=== PATIENT | female | born 1990 | race Caucasian/White ===

== ENCOUNTER 2024-09-16 03:13 | Emergency (ER) | payer OTHER, SELFPAY ==
[2024-09-16 03:21] VITALS: BP 103/81; BMI 23.1
[2024-09-16 03:42] LABS: % Basophils 0.8 % (0-2); % Eosinophils 0.7 % (0-6); % Immature Granulocytes 0.2 % (0-0.5); % Lymphocytes 25.4 % (20.5-51.1); % Monocytes 6.9 % (1.7-9.3); Absolute Basophils 0.1 10^3/uL (0-0.2); Absolute Lymphocytes 1.6 10^3/uL (1.2-3.4); Absolute Monocytes 0.4 10^3/uL (0.1-0.6); Absolute Neutrophils 4.1 10^3/uL (1.4-6.5); Hematocrit 32.1 % (37.0-47.0); Hemoglobin 11.6 g/dL (12.0-16.0); Mean Corp Hgb Conc. 36.1 g/dL (33.0-37.0); Mean Corpuscular Hgb 30.9 pg (27.0-31.0); Mean Corpuscular Volume 85.4 fL (81.0-99.0); Mean Platelet Volume 9.5 fL (7.4-10.4); Nucleated Red Blood Cells % 0 %; Platelet Count 185 10^3/uL (130-400); Red Blood Cell Count 3.76 10^6/uL (4.20-5.40); Red Cell Dist. Width 12.3 % (11.5-14.5); White Blood Cell Count 6.1 10^3/uL (4.8-10.8)
[2024-09-16 03:51] LABS: HCG, Serum Qualitative Screen Negative
[2024-09-16 03:56] LABS: ALT (SGPT) 18 U/L (0-35); AST (SGOT) 20 U/L (14-36); Albumin 3.8 g/dl (3.5-5.0); Alkaline Phosphatase 54 U/L (38-126); Blood Urea Nitrogen 24 mg/dl (7-17); Calcium 8.7 mg/dl (8.4-10.2); Carbon Dioxide 21 mmol/L (22-30); Chloride 108 mmol/L (98-107); Estimated Creatinine Clearance 92 ml/min; Glucose 91 mg/dl (70-99); Potassium 3.8 mmol/L (3.5-5.1); Sodium 141 mmol/L (135-145); Total Bilirubin 0.4 mg/dl (0.2-1.3); Total Protein 6.1 g/dl (6.3-8.2); eGFR > 60.00
[2024-09-16 04:00] VITALS: BP 99/69
--- NOTE | 2024-09-16 04:15 | ED.GENMED ---
History of Present Illness
<TAMEKA Swain - Last Filed: 09/16/24 07:21>
General
Chief Complaint: Fainting/Passed Out
Source: patient
Exam Limitations: none
Time Seen by Provider: 09/16/24 04:02
Nursing documentation reviewed up to this point in time: agreed with
History of Present Illness
History of Present Illness:
Patient is a 33yo F w/ no significant PMH presents to the ED via EMS after passing out. Pt states she checked on her son, went back to bed, and suddenly got very nauseous. Went to [place], started to get very sweaty and dizzy. Passed out and hit cheek on
toilet. Admits to small amount of diarrhea after fainting. Admit to some continued nausea, chills, and 'doesn't feel like herself'. Denies BRENNAN, dizziness, chest pain, SOB, and fever. Denies recent illness. One similar episode years ago when she had
mastitis. Notes she did not have dinner tonight. Reports adequate hydration.
Past History
<TAMEKA Swain - Last Filed: 09/16/24 07:21>
Past History
ED Past Medical History: Negative Asthma, HTN, Hypercholesterolemia or NIDDM
ED Past Surgical History: None
Social History
Tobacco: Non-smoker
Alcohol: None
Personal: Single
Living: with family
Review of Systems
<TAMEKA Swain - Last Filed: 09/16/24 07:21>
Review of Systems
Constitutional: Reports chills; Denies fever or fatigue
EENT: Denies sore throat or runny nose
Respiratory: Denies cough or trouble breathing
Cardiac: Reports syncope; Denies chest pain or palpitations
ABD/GI: Reports abdominal pain, nausea and diarrhea; Denies vomiting or constipated
: Denies dysuria
Musculoskeletal: Denies joint pain or muscle pain
Skin: Denies itching or rash
Neurological: Denies dizzy, headache, weakness or numbness
Phy Exam
<Na Stanley [facility] - [facility] Filed: 09/16/24 07:21>
General Physical Exam
General Presentation: well appearing
General age: appears stated age
General Skin: warm and dry
General Habitus: normal
General Mental: alert
Eye Exam
Eye Exam: PERRL
Cardiovascular Exam
Cardiovascular Exam: regular rate/rhythm, no edema, no gallop and no murmur
Pulmonary Exam
Pulmonary Exam: lungs clear, no respiratory distress, no rales, no crackles, no rhonchi, no wheezing and no cough
Gastrointestinal Exam
Gastrointestinal Exam: normal bowel sounds, non tender, soft, no organomegaly and non distended
Neurological Exam
Neurological Exam: alert, oriented x3 and speech normal
Course
<Na Stanley [facility] - [facility] Filed: 09/16/24 07:21>
Orders/Labs/Results
Orders:
Orders
09/16/24 03:20
Electrocardiogram (*1) Urgent
Reason for Study: Syncope
EKG- Treatment ONCE
Test Result ONCE
09/16/24 03:35
Complete Blood Count/With Diff Urgent
Comprehensive Metabolic Panel Urgent
HCG, Serum Qualitative Screen Urgent
09/16/24 04:22
0.9% Sodium Chloride 1000 ml [Nss] 1,000 ml IV BOLUS
09/16/24 05:52
Orthostatic Vital Signs As Directed
Orthostatic VS Frequency: Now
Abnormal Lab Results
09/16/24
03:35
RBC 3.76 L 10^6/uL
(4.20-5.40)
Hgb 11.6 L g/dL
(12.0-16.0)
Hct 32.1 L %
(37.0-47.0)
Chloride 108 H mmol/L
(98-107)
Carbon Dioxide 21 L mmol/L
(22-30)
BUN 24 H mg/dl
(7-17)
Total Protein 6.1 L g/dl
(6.3-8.2)
09/16/24 03:35
09/16/24 03:35
Vital Signs
Initial and Last Documented VS:
Initial Vital Signs
Temp Pulse Resp BP Pulse Ox
97.7 F 68 16 103/81 99
09/16/24 03:21 09/16/24 03:21 09/16/24 03:21 09/16/24 03:21 09/16/24 03:21
Last Documented Vital Signs
Temp Pulse Resp BP Pulse Ox
97.7 F 90 14 91/60 99
09/16/24 03:21 09/16/24 06:16 09/16/24 06:16 09/16/24 06:00 09/16/24 03:21
<Michaela Mauricio, DO - Last Filed: 09/16/24 06:42>
Orders/Labs/Results
Orders:
Orders
09/16/24 03:20
Electrocardiogram (*1) Urgent
Reason for Study: Syncope
EKG- Treatment ONCE
Test Result ONCE
09/16/24 03:35
Complete Blood Count/With Diff Urgent
Comprehensive Metabolic Panel Urgent
HCG, Serum Qualitative Screen Urgent
09/16/24 04:22
0.9% Sodium Chloride 1000 ml [Nss] 1,000 ml IV BOLUS
09/16/24 05:52
Orthostatic Vital Signs As Directed
Orthostatic VS Frequency: Now
Abnormal Lab Results
09/16/24
03:35
RBC 3.76 L 10^6/uL
(4.20-5.40)
Hgb 11.6 L g/dL
(12.0-16.0)
Hct 32.1 L %
(37.0-47.0)
Chloride 108 H mmol/L
(98-107)
Carbon Dioxide 21 L mmol/L
(22-30)
BUN 24 H mg/dl
(7-17)
Total Protein 6.1 L g/dl
(6.3-8.2)
09/16/24 03:35
09/16/24 03:35
Vital Signs
Initial and Last Documented VS:
Initial Vital Signs
Temp Pulse Resp BP Pulse Ox
97.7 F 68 16 103/81 99
09/16/24 03:21 09/16/24 03:21 09/16/24 03:21 09/16/24 03:21 09/16/24 03:21
Last Documented Vital Signs
Temp Pulse Resp BP Pulse Ox
97.7 F 90 14 91/60 99
09/16/24 03:21 09/16/24 06:16 09/16/24 06:16 09/16/24 06:00 09/16/24 03:21
<TAMEKA Swain - Last Filed: 09/16/24 07:21>
MDM/Problems Addressed
Differential Diagnosis Includes:
vasovagal syncope, hypoglycemia, arrhythmia
<TAMEKA Swain - Last Filed: 09/16/24 07:21>
*Critical Care Note
Total Time (30-74mins, 75-104mins- exclusive of procedures): Not Applicable
<Michaela Mauricio DO - Last Filed: 09/16/24 06:42>
*Pulse Oximetry
Patient hypoxic: no
*EKG
Interpreted by ED Provider?: Yes
Interpretation: normal
Comparison EKG: no comparison EKG present
Rate: normal
Rhythm: sinus
[place]: normal axis
Interval: normal interval
QRS Pattern: normal QRS
Ischemia: no ischemia
*Art Critic Interpretation
Rate: normal
Interpretation: normal
Rhythm: sinus
ED Attending Note
<TAMEKA Swain - Last Filed: 09/16/24 07:21>
-
Portions of this chart may have been created with voice recognition software.� Occasional wrong word or��sound alike� substitutions may have occurred due to the inherent limitations of voice recognition software.
<Michaela Mauricio DO - Last Filed: 09/16/24 06:42>
ED Attending Note
Patient seen and examined by attending physician: Yes
I performed the substantive portion of visit, reviewed & personally made and approve the management plan that is documented in note by myself or RENETTA.: Yes
ED Attending Note:
This is a 33-year-old woman with no significant past medical history who states she felt nauseous while heading back to bed after checking on her children. She got up out of bed, went to the bathroom and proceeded to pass out striking her cheek on
the toilet or counter. She did not vomit but notes brief loss of consciousness and upon waking then passed a loose nonbloody stool. She continues with nausea but has had no vomiting.
Upon EMS arrival noted to be significantly hypotensive as well as bradycardic. IV fluid bolus of 800 cc initiated prehospital with marked improvement in blood pressure, improvement in heart rate to normal sinus rhythm in the 60s.
Patient reports 1 previous episode of syncope with episode of mastitis while nursing.
She denies risk of . She takes no medicines on a daily basis. Exercises on a regular basis.
She denies headache, denies neck or back pain. No chest pain no palpitations, no abdominal pain.
GENERAL: Alert , in no apparent distress
EYE: pupils equal and reactive. anicteric
NECK: Supple, nontender, no meningismus, no significant adenopathy.
ENT: posterior pharynx is clear, oral mucosa is moist. TM clear b/l, nares patent. Very minimal erythema right cheek without soft tissue swelling, no significant tenderness to palpation.
CARDIAC: Regular rate and rhythm. no murmur.
LUNGS: Clear breath sounds bilaterally, no acute respiratory distress, no wheezes/rales/rhonchi
ABDOMEN: Soft, nondistended, without focal tenderness, no r/g, no cvat. normoactive BS.
NEUROLOGICAL: Alert and oriented x3, no focal neuro deficits.
SKIN: Warm and dry, normal color, skin intact. No rash.
MUSCULOSKELETAL: No C/C/E. peripheral pulses are full and equal b/l. No palpable tenderness.
PSYCH: Normal and appropriate interaction.
Patient presents after syncopal episode at home suggestive of vasovagal syncope.
Currently asymptomatic. Mildly soft blood pressure. Will continue IV fluids, continue bus monitor, will check labs. She does admit to skipping dinner last night which is unusual for her which could be a contributing factor.
Other consideration is early onset gastroenteritis and will monitor for recurrent symptoms.
She denies pain. At this point no indication for imaging.
09/16/2024 0641 AM
Patient continues to feel well, no return of nausea nor diarrhea, no abdominal pain, no recurrent syncopal episodes.
She remains hemodynamically stable.
Labs are unremarkable save for mild prerenal azotemia.
Orthostatic vital signs are negative.
Will discharge to home with recommendations to stay well-hydrated on a daily basis. Recommend she avoid skipping meals.
Prompt follow-up with PCP for recheck.
Discharge Plan
Departure
Patient Disposition: Home (Routine Discharge)
Date of Disposition: 09/16/24
Time of Disposition: 06:38
Patient with high blood pressure during this ER visit?: No
Condition: Good
Discharge Problem:
Syncope, vasovagal
Instructions: Syncope (Fainting) (DC)
Referrals:
Wilberto Valladares, [Family Provider] - Call in 1-3 days for appt
Interventions
Interventions:
*Risk Screen - Suicide Last Done: 09/16/24 03:21
*General Assessment Last Done: 09/16/24 03:21
*Neglect/Abuse Screening Last Done: 09/16/24 03:21
*ED COVID-19 Vaccine History Last Done: 09/16/24 03:21
*Nursing Disposition Last Done: 09/16/24 07:08
ED- Cardiac Assessment Last Done: 09/16/24 03:38
ED- Neurological Assessment Last Done: 09/16/24 03:38
Discharge Date and Time
Discharge Date/Time: 09/16/24 07:16
Print Language: [place]
[2024-09-16] MEDS: NSS 1000 IV (04:28)
[2024-09-16 05:00] VITALS: BP 96/63
[2024-09-16 06:00] VITALS: BP 91/60
[2024-09-16 06:19] VITALS: BP 102/71; BP 86/63; BP 99/64; PULSE 79; PULSE 82; PULSE 90
== END 2024-09-16 07:16 | disposition home or self-care (01) ==
LOC: EMR 03:13
PROVIDERS: EMERGENCY PHYSICIAN Emergency Medicine; FAMILY PHYSICIAN Family Medicine
DX: R55 Syncope and collapse (principal); W19.XXXA Unspecified fall, initial encounter
CPT/HCPCS: 99284; 96360; 80053; 84703; 85025; 93005

== ENCOUNTER 2024-09-17 11:30 | Emergency (ER) | payer OTHER, SELFPAY ==
[2024-09-17 11:32] VITALS: BP 122/77
--- NOTE | 2024-09-17 12:25 | ED.GENMED ---
History of Present Illness
General
Chief Complaint: Head Injury
Source: patient
Exam Limitations: none
Time Seen by Provider: 09/17/24 12:00
Nursing documentation reviewed up to this point in time: agreed with
History of Present Illness
History of Present Illness:
Patient is a 33-year-old female who presents to the ER for evaluation of headache. Patient was seen here yesterday morning around 4 AM. Prior to that around 2 AM she was walking to the bathroom had a syncopal episode and hit her face on the toilet
seat. She had a workup for syncope here in the ER and was discharged home however last night had worsening headache and had episodes of confusion trying to get her words out. Today she has no confusion but does complain of persistent headache.
She went to urgent care and they suggested she come to the ER. She did not have any imaging yesterday.
She denies any nausea vomiting vision changes.
Past History
Past History
ED Past Medical History: Negative Asthma, HTN, Hypercholesterolemia or NIDDM
ED Past Surgical History: None
Social History
Tobacco: Non-smoker
Alcohol: None
Personal: Single
Living: with family
Review of Systems
Review of Systems
Allergies reviewed?: Yes
All Other Systems: ROS reviewed and negative except as documented in HPI and ROS
Constitutional: Reports no symptoms; Denies fever
Respiratory: Reports no symptoms
Cardiac: Reports no symptoms
ABD/GI: Reports no symptoms
Musculoskeletal: Reports no symptoms
Skin: Reports no symptoms
Neurological: Reports headache and other (had confusion yesterday )
Psychiatric: Reports no symptoms
Phy Exam
General Physical Exam
General Presentation: no apparent distress
General age: appears stated age
General Skin: warm and dry
General Habitus: normal
General Mental: alert
General Hydration: appears well hydrated
ENT Exam
ENT Exam: EOMI
Neurological Exam
Neurological Exam: alert, oriented x3, no motor deficits and no sensory deficits
Musculoskeletal Exam
Musculoskeletal Exam: full ROM
Skin Exam
Skin Exam: normal color and warm/dry
Psychiatric Exam
Psychiatric Exam: normal mood/affect
Course
Orders/Labs/Results
Orders:
Orders
09/17/24 12:22
CT Head W/o Iv Contrast Urgent
Comment:
Reason For Exam: trauma
Vital Signs
Initial and Last Documented VS:
Initial Vital Signs
Temp Pulse Resp BP Pulse Ox
97.8 F 70 16 122/77 98
09/17/24 11:32 09/17/24 11:32 09/17/24 11:32 09/17/24 11:32 09/17/24 11:32
Last Documented Vital Signs
Temp Pulse Resp BP Pulse Ox
97.8 F 70 16 122/77 98
09/17/24 11:32 09/17/24 11:32 09/17/24 11:32 09/17/24 11:32 09/17/24 11:32
ED Attending Note
-
Portions of this chart may have been created with voice recognition software.� Occasional wrong word or��sound alike� substitutions may have occurred due to the inherent limitations of voice recognition software.
Discharge Plan
Departure
Referrals:
Wilberto Valladares DO [Family Provider] -
Interventions
Interventions:
*Risk Screen - Suicide Last Done: 09/17/24 11:32
*Neglect/Abuse Screening Last Done: 09/17/24 11:32
ED- Neurological Assessment Last Done: 09/17/24 12:23
ED-Skin Assessment Last Done: 09/17/24 12:23
Discharge Date and Time
Print Language: [id number]
[2024-09-17 13:59] VITALS: BP 109/76
[2024-09-17 14:00] VITALS: BP 109/76
== END 2024-09-17 14:01 | disposition home or self-care (01) ==
LOC: EMR 11:30
PROVIDERS: EMERGENCY PHYSICIAN Student in an Organized Health Care Education/Training Program; FAMILY PHYSICIAN Family Medicine
DX: S09.90XA Unspecified injury of head, initial encounter (principal); W19.XXXA Unspecified fall, initial encounter
CPT/HCPCS: 99284; 70450